=== PATIENT | female | born 1990 | race Caucasian/White ===

== ENCOUNTER 2025-01-29 20:01 | Emergency (ER) | payer OTHER ==
[~2025-01-29] VITALS: Ht 152.4 cm; Wt 127.0 kg
[~2025-01-29 20:01] MED LIST: DOXYCYCLINE MO100 MG PO
[2025-01-29] MEDS ORDERED: NAPROSYN500 MG PO (22:49)
[2025-01-29] MEDS ORDERED: METHOCARBAMOL750 M1 PO (22:49)
[2025-01-29] MEDS ORDERED: METHOCARBAMOL 500 MG TAB PO ONE (22:50)
== END 2025-01-29 23:19 | disposition home or self-care (01) ==
LOC: ED 20:01
DX: R07.89 Other chest pain (principal); R07.81 Pleurodynia; R10.A1 Flank pain, right side; V89.2XXA Person injured in unspecified motor-vehicle accident, traffic, initial encounter; Y93.I9 Activity, other involving external motion; Y92.488 Other paved roadways as the place of occurrence of the external cause; Y99.8 Other external cause status